=== PATIENT | male | born 1995 | race Caucasian/White ===

== ENCOUNTER 2018-12-06 00:48 | Emergency (ER) | payer OTHER ==
[~2018-12-06] VITALS: Ht 177.8 cm; Wt 72.6 kg
[2018-12-06 00:54] VITALS: BP 130/76
--- NOTE | 2018-12-06 00:54 | NUR ---
TO BED # 09 AMBULATORY
--- NOTE | 2018-12-06 01:03 | NUR ---
Dr. Cat examining patient.
[2018-12-06] MEDS ORDERED: IBUPROFEN 800 MG TAB PO ONE (01:05)
--- NOTE | 2018-12-06 01:06 | NUR ---
PT C/O RT HAND PAIN AFTER FALLING ON IT WHILE SKATEBOARDING AT 2300 TONIGHT. PAIN UPON MAKING FIST. NO BRUISING, NO SWELLING AT THIS TIME. TENDER TO TOUCH PALMAR SURFACE. RESPIRATIONS EVEN AND UNLABORED. PT IN ROOM CALM AND PLEASANT. 05/01 PAIN. MEDHX: DENIES
--- NOTE | 2018-12-06 01:06 | NUR ---
X-Ray at bedside.
--- NOTE | 2018-12-06 01:11 | NUR ---
PT STATES HE ALSO HAS HAD BLOOD IN STOOL X2 DAYS. BRIGHT RED, STREAKY. 1ST BM WITH BLOOD WAS DIARRHEA. FORMED STOOL AFTER.
[2018-12-06 01:31] LABS: EOSINOPHILS # (AUTO) 0.1 K/uL (0-0.4); HEMOGLOBIN 15.6 g/dL (12.0-18.0); MEAN CORPUSCULAR HGB CONC 34 g/dL (33-37); PLATELET COUNT (AUTO) 213 K/uL (140-450); RED BLOOD CELL COUNT(AUTO) 4.98 MIL/uL (4.20-6.10); WHITE BLOOD COUNT (AUTO) 7.2 K/uL (4.8-10.8)
[2018-12-06 01:42] LABS: BASOPHILS % (AUTO) 0.3 % (0.0-2.0); EOSINOPHILS % (AUTO) 0.9 % (0.0-4.0); HEMATOCRIT 45.5 % (36-52); LYMPHOCYTES # (AUTO) 1.2 K/uL (2.0-11.5); LYMPHOCYTES % (AUTO) 17.3 % (20.5-51.1); MEAN CORPUSCULAR HEMOGLOBIN 31 pg (27-31); MEAN CORPUSCULAR VOLUME 91.5 fL (80-94); MONOCYTES # (AUTO) 1.3 K/uL (0.8-1.0); NEUTROPHILS # (AUTO) 4.6 K/uL (1.8-7.7); NEUTROPHILS % (AUTO) 63.6 % (42.2-75.2); RED CELL DISTRIBUTION WIDTH 12.8 % (11.6-13.7)
[2018-12-06 01:44] LABS: MONOCYTES % (AUTO) 17.9 % (1.7-9.3)
--- NOTE | 2018-12-06 01:53 | NUR ---
pts right hand was wrapped in a sunita bandage. pts pms[facility] wnl.
[2018-12-06 02:40] VITALS: BP 126/71
== END 2018-12-06 02:40 | disposition home or self-care (01) ==
LOC: MED 00:48
DX: S63.91XA Sprain of unspecified part of right wrist and hand, initial encounter (principal); K92.1 Melena; W19.XXXA Unspecified fall, initial encounter; Y93.51 Activity, roller skating (inline) and skateboarding; Y92.89 Other specified places as the place of occurrence of the external cause; Y99.8 Other external cause status
CPT/HCPCS: 36415; 73130; 85025; 99284; Q0092; 99283